=== PATIENT | male | born 1950 | race Caucasian/White ===

== ENCOUNTER → 2018-07-10 | Outpatient (CLI) | payer MEDICARE ==
[~2018-07-10] MED LIST: ATOR40TA78 PO; CARV-39 PO; CLOP75TA52 PO; RAMI10CA59 PO
[2018-07-10 14:47] LABS: BASOPHILS # (AUTO) 0.06 x10^3/uL (0-0.1); BASOPHILS % (AUTO) 1 % (0-1); EOSINOPHILS # (AUTO) 0.25 x10^3/uL (0-0.4); EOSINOPHILS % (AUTO) 5 % (1-7); LYMPHOCYTES # (AUTO) 1.07 x10^3/uL (1-3.4); LYMPHOCYTES % (AUTO) 21 % (22-44); MD NO; MEAN CORPUSCULAR HEMOGLOBIN 31.5 pg (27.5-34.5); MEAN CORPUSCULAR HGB CONC 33.6 g/dL (33.2-36.2); MEAN CORPUSCULAR VOLUME 93.8 fL (81-97); MONOCYTES # (AUTO) 0.59 x10^3/uL (0.2-0.8); MONOCYTES % (AUTO) 11 % (2-9); NEUTROPHILS # (AUTO) 3.22 x10^3/uL (1.8-6.8); NEUTROPHILS % (AUTO) 62 % (42-75); PLATELET COUNT 174 x10^3/uL (130-400); RED BLOOD COUNT 4.04 x10^6/uL (4.38-5.82); RED CELL DISTRIBUTION WIDTH 14.6 % (9.4-14.8)
[2018-07-10 14:55] LABS: INTERNATIONAL NORMALIZED RATIO 1.11 (0.93-1.1); PROTHROMBIN TIME 11.4 Seconds (9.6-11.5)
[2018-07-10 14:57] LABS: ALBUMIN 4.1 g/dL (3.4-5.0); ANION GAP 8 mmol/L (5-15); CALCIUM 8.8 mg/dL (8.5-10.1); CHLORIDE 108 mmol/L (98-107)
[2018-07-10 15:01] LABS: ALANINE AMINOTRANSFERASE 23 U/L (12-78); ALKALINE PHOSPHATASE 138 U/L (45-117); BILIRUBIN,TOTAL 0.5 mg/dL (0.2-1.0); CREATININE 1.54 mg/dL (0.7-1.3); TOTAL PROTEIN 7.7 g/dL (6.4-8.2)
[2018-07-10 15:06] LABS: MICROSCOPIC NOT IND
== END | disposition home or self-care (01) ==
LOC: STAR 13:19
PROVIDERS: ATTEND Urology
DX: Z01.818 Encounter for other preprocedural examination (principal); C67.9 Malignant neoplasm of bladder, unspecified
CPT/HCPCS: 36415; 71045; 80053; 81003; 85025; 85610; 85730; 87086; 93005

== ENCOUNTER 2018-07-24 06:05 | Inpatient (IN) | payer MEDICARE ==
[~2018-07-24] VITALS: Ht 172.7 cm; Wt 85.0 kg
[2018-07-24] MEDS ORDERED: LACTATED RINGERS 1,000 ML IV SCH (07:32)
[2018-07-24] MEDS ORDERED: ALBUMIN HUMAN 5% 500 ML ONE (09:37)
[2018-07-24] MEDS ORDERED: MIDAZOLAM 1 MG/ML, 2ML ONE (10:23)
[2018-07-24] MEDS ORDERED: FENTANYL PF 250 MCG/5ML ONE ×2 (10:23→10:26)
[2018-07-24] MEDS ORDERED: LIDOCAINE JELLY 2%, 30GM ONE (10:26)
[2018-07-24] MEDS ORDERED: SUCCINYLCHOLINE 20 MG/ML, 10ML ONE ×2 (10:27→11:40)
[2018-07-24] MEDS ORDERED: ROCURONIUM 10MG/ML,5ML ONE (10:27)
[2018-07-24] MEDS ORDERED: PROPOFOL 10 MG/ML, 20ML ONE ×2 (10:27→11:40)
[2018-07-24] MEDS ORDERED: DEXAMETHASONE 4 MG/ML, 1ML ONE (10:27)
[2018-07-24] MEDS ORDERED: ACETAMINOPHEN 500 MG TABLET PO ONE (10:30)
[2018-07-24] MEDS ORDERED: GABAPENTIN 300 MG CAPSULE PO ONE (10:30)
[2018-07-24] MEDS ORDERED: SCOPOLAMINE PATCH, 1.5MG PATCH.TD72 TD ONE (10:30)
[2018-07-24] MEDS ORDERED: GLYCOPYRROLATE 0.2MG/1ML, 5ML ONE (11:40)
[2018-07-24] MEDS ORDERED: ROCURONIUM 10 MG/ML,10ML ONE (11:40)
[2018-07-24] MEDS ORDERED: ONDANSETRON 2MG/ML, 2ML ONE (11:40)
[2018-07-24] MEDS ORDERED: ONDANSETRON 2MG/ML, 2ML IV PRN (13:00)
[2018-07-24] MEDS ORDERED: MEPERIDINE/PF 25MG/0.5ML IVPush PRN (13:00)
[2018-07-24] MEDS ORDERED: ALBUTEROL SULFATE 2.5 MG/3 ML NPPB PRN (13:00)
[2018-07-24] MEDS ORDERED: FENTANYL PF 100 MCG/2ML IV PRN (13:00)
[2018-07-24] MEDS ORDERED: LABETALOL 5MG/ML, 20ML IV PRN (13:00)
[2018-07-24] MEDS ORDERED: hydrALAzine 20 MG/ML, 1ML IV PRN (13:00)
[2018-07-24] MEDS ORDERED: HYDROmorphone 1 MG/ML, 1ML IV PRN (13:00)
[2018-07-24] MEDS ORDERED: PROMETHAZINE 25 MG/ML, 1ML IV PRN (13:00)
[2018-07-24] MEDS ORDERED: ONDANSETRON ODT 8 MG PO PRN (13:00)
[2018-07-24] MEDS ORDERED: OXYcodone 5 MG/5 ML ORAL.SOL UDC PO PRN (13:00)
[2018-07-24] MEDS ORDERED: PROMETHAZINE 12.5 MG SUPP PR PRN (13:00)
[2018-07-24] MEDS ORDERED: MORPHINE SULFATE 4 MG/ML, 1ML IVPush PRN (13:00)
[2018-07-24] MEDS ORDERED: DIAZEPAM 5 MG/ML, 2ML IVPush PRN (13:00)
[2018-07-24] MEDS ORDERED: EPHEDRINE 50 MG/ML, 1ML IVPush PRN ×2 (13:00→21:00)
[2018-07-24] MEDS ORDERED: HALOPERIDOL 5 MG/ML IV PRN (13:00)
[2018-07-24] MEDS ORDERED: MIDAZOLAM 1 MG/ML, 2ML IV PRN (13:00)
[2018-07-24] MEDS ORDERED: HYDROmorphone 5 MG, BUPIVACAINE/PF 0.5%, 30ML 62.5 ML in SODIUM CHLORIDE 0.9% 182.5 ML EPIDCONT SCH (13:30)
[2018-07-24] MEDS ORDERED: LIDOCAINE/PF 1.5%-EPI 1:200K, 30ML ONE (16:00)
[2018-07-24 19:01] LABS: BASOPHILS # (AUTO) 0.01 x10^3/uL (0-0.1); BASOPHILS % (AUTO) 0 % (0-1); EOSINOPHILS # (AUTO) 0.01 x10^3/uL (0-0.4); EOSINOPHILS % (AUTO) 0 % (1-7); LYMPHOCYTES # (AUTO) 0.32 x10^3/uL (1-3.4); LYMPHOCYTES % (AUTO) 4 % (22-44); MD NO; MEAN CORPUSCULAR HEMOGLOBIN 31.6 pg (27.5-34.5); MEAN CORPUSCULAR VOLUME 92.8 fL (81-97); MEAN PLATELET VOLUME 8.8 fL (7.4-10.4); MONOCYTES % (AUTO) 2 % (2-9); NEUTROPHILS # (AUTO) 8.48 x10^3/uL (1.8-6.8); NEUTROPHILS % (AUTO) 94 % (42-75); PLATELET COUNT 121 x10^3/uL (130-400); RED BLOOD COUNT 3.28 x10^6/uL (4.38-5.82); RED CELL DISTRIBUTION WIDTH 13.9 % (9.4-14.8)
[2018-07-24] MEDS ORDERED: NALOXONE 0.4 MG in SODIUM CHLORIDE 0.9% 1,000 ML IVPush SCH (21:00)
[2018-07-24] MEDS ORDERED: DO NOT GIVE XX SCH ×3 (21:00)
[2018-07-24] MEDS ORDERED: METOCLOPRAMIDE 5 MG/ML, 2ML IV PRN (21:00)
[2018-07-24] MEDS ORDERED: KETOROLAC 30 MG/1 ML IV PRN (21:00)
[2018-07-24] MEDS ORDERED: NALOXONE 0.4 MG/ML, 1ML IVPush PRN (21:00)
[2018-07-24] MEDS ORDERED: KETOROLAC 30 MG/1 ML IM PRN (21:00)
[2018-07-24] MEDS ORDERED: ONDANSETRON 4 MG TABLET PO PRN (21:00)
[2018-07-24] MEDS ORDERED: DO NOT GIVE MC SCH (21:00)
[2018-07-24] MEDS ORDERED: NALOXONE 0.4 MG/ML, 1ML IV PRN ×2 (21:00)
[2018-07-24] MEDS ORDERED: FENTANYL PF 100 MCG/2ML EPIDPUSH PRN (21:00)
[2018-07-24] MEDS: ATORVASTATIN 40 MG TABLET PO SCH (21:57)
[2018-07-24] MEDS: CARVEDILOL 25 MG TABLET PO SCH (21:57)
[2018-07-24] MEDS: CEFAZOLIN PMX 1GM/50ML 50 ML IVPB SCH (21:57)
[2018-07-25 00:30] VITALS: BP 126/81
[2018-07-25] MEDS: D5%-0.45% NACL 1,000 ML IV SCH ×3 (01:29→17:44)
[2018-07-25 04:25] VITALS: BP 100/65
[2018-07-25] MEDS: CEFAZOLIN PMX 1GM/50ML 50 ML IVPB SCH ×3 (05:14→22:29)
[2018-07-25 06:41] LABS: BASOPHILS # (AUTO) 0.03 x10^3/uL (0-0.1); BASOPHILS % (AUTO) 0 % (0-1); EOSINOPHILS % (AUTO) 0 % (1-7); LYMPHOCYTES # (AUTO) 0.46 x10^3/uL (1-3.4); LYMPHOCYTES % (AUTO) 4 % (22-44); MD NO; MEAN CORPUSCULAR HEMOGLOBIN 31.7 pg (27.5-34.5); MEAN CORPUSCULAR HGB CONC 34.3 g/dL (33.2-36.2); MEAN CORPUSCULAR VOLUME 92.4 fL (81-97); MEAN PLATELET VOLUME 8.4 fL (7.4-10.4); MONOCYTES % (AUTO) 8 % (2-9); NEUTROPHILS # (AUTO) 9.68 x10^3/uL (1.8-6.8); NEUTROPHILS % (AUTO) 87 % (42-75); PLATELET COUNT 127 x10^3/uL (130-400); RED CELL DISTRIBUTION WIDTH 13.9 % (9.4-14.8)
[2018-07-25 06:54] LABS: ANION GAP 7 mmol/L (5-15); CALCIUM 7.1 mg/dL (8.5-10.1); CHLORIDE 107 mmol/L (98-107)
[2018-07-25 06:55] LABS: CREATININE 1.81 mg/dL (0.7-1.3)
[2018-07-25 07:26] VITALS: BP 102/66
[2018-07-25] MEDS: RAMIPRIL 10 MG CAPSULE PO SCH (09:00)
[2018-07-25] MEDS: CARVEDILOL 25 MG TABLET PO SCH ×2 (09:00→22:27)
[2018-07-25 10:09] VITALS: BP_SYST 93; BP_SYST 95; BP_DIAS 59; BP_DIAS 63
[2018-07-25] MEDS: HYDROmorphone 5 MG, BUPIVACAINE/PF 0.5%, 30ML 62.5 ML in SODIUM CHLORIDE 0.9% 182.5 ML EPIDCONT SCH ×2 (11:20→17:42)
[2018-07-25 14:47] VITALS: BP 101/67
[2018-07-25] MEDS ORDERED: BUPIVACAINE/PF 0.5%, 30ML 62.5 ML in SODIUM CHLORIDE 0.9% 187.5 ML EPIDCONT SCH ×2 (17:53→17:54)
[2018-07-25 20:54] VITALS: BP 115/73
[2018-07-25] MEDS: ATORVASTATIN 40 MG TABLET PO SCH (22:27)
[2018-07-26] MEDS: D5%-0.45% NACL 1,000 ML IV SCH ×4 (00:23→20:22)
[2018-07-26 01:00] VITALS: BP 100/70
[2018-07-26 02:52] VITALS: BP 97/41
[2018-07-26 05:37] VITALS: BP 100/65
[2018-07-26] MEDS: CEFAZOLIN PMX 1GM/50ML 50 ML IVPB SCH ×3 (06:10→23:03)
[2018-07-26 06:26] LABS: ALANINE AMINOTRANSFERASE 14 U/L (12-78); ANION GAP 5 mmol/L (5-15); CALCIUM 7.8 mg/dL (8.5-10.1); CHLORIDE 109 mmol/L (98-107)
[2018-07-26 06:29] LABS: ALKALINE PHOSPHATASE 75 U/L (45-117); BILIRUBIN,TOTAL 0.3 mg/dL (0.2-1.0); CREATININE 1.55 mg/dL (0.7-1.3); TOTAL PROTEIN 5.8 g/dL (6.4-8.2)
[2018-07-26 08:50] VITALS: BP 119/79
[2018-07-26] MEDS: RAMIPRIL 10 MG CAPSULE PO SCH (09:21)
[2018-07-26] MEDS: CARVEDILOL 25 MG TABLET PO SCH ×2 (09:22→20:23)
[2018-07-26] MEDS: HEPARIN 5,000 UNITS/ML, 1ML SQ SCH (12:59)
[2018-07-26] MEDS ORDERED: morphine SULFATE ORAL.CONC 20 MG/ML PO PRN (15:00)
[2018-07-26 15:38] VITALS: BP 105/70
[2018-07-26 20:04] VITALS: BP 113/76
[2018-07-26] MEDS: ATORVASTATIN 40 MG TABLET PO SCH (20:22)
[2018-07-26] MEDS: ACETAMINOPHEN 325 MG TABLET PO PRN (20:29)
[2018-07-27] MEDS: HEPARIN 5,000 UNITS/ML, 1ML SQ SCH ×2 (01:50→14:04)
[2018-07-27 02:09] VITALS: BP 99/57
[2018-07-27] MEDS: D5%-0.45% NACL 1,000 ML IV SCH ×2 (03:56→23:28)
[2018-07-27] MEDS: ONDANSETRON ODT 4 MG PO PRN (03:56)
[2018-07-27] MEDS: ACETAMINOPHEN 325 MG TABLET PO PRN (04:10)
[2018-07-27] MEDS: CEFAZOLIN PMX 1GM/50ML 50 ML IVPB SCH ×3 (05:49→22:02)
[2018-07-27 08:11] VITALS: BP 111/75
[2018-07-27] MEDS: CARVEDILOL 25 MG TABLET PO SCH ×2 (08:48→22:02)
[2018-07-27] MEDS: RAMIPRIL 10 MG CAPSULE PO SCH (08:49)
[2018-07-27] MEDS: OXYcodone/APAP 5/325MG TABLET PO PRN ×3 (14:17→22:02)
[2018-07-27 14:55] VITALS: BP 116/81
[2018-07-27 19:50] VITALS: BP 117/75
[2018-07-27] MEDS: ATORVASTATIN 40 MG TABLET PO SCH (22:02)
[2018-07-28] MEDS: HEPARIN 5,000 UNITS/ML, 1ML SQ SCH ×2 (01:51→12:57)
[2018-07-28 02:00] VITALS: BP 124/79
[2018-07-28] MEDS: OXYcodone/APAP 5/325MG TABLET PO PRN ×5 (06:24→22:53)
[2018-07-28] MEDS: CEFAZOLIN PMX 1GM/50ML 50 ML IVPB SCH ×3 (06:25→22:53)
[2018-07-28 06:27] LABS: BASOPHILS # (AUTO) 0.05 x10^3/uL (0-0.1); BASOPHILS % (AUTO) 1 % (0-1); EOSINOPHILS # (AUTO) 0.38 x10^3/uL (0-0.4); EOSINOPHILS % (AUTO) 5 % (1-7); LYMPHOCYTES # (AUTO) 0.95 x10^3/uL (1-3.4); LYMPHOCYTES % (AUTO) 13 % (22-44); MD NO; MEAN CORPUSCULAR HEMOGLOBIN 30.6 pg (27.5-34.5); MEAN CORPUSCULAR HGB CONC 32.9 g/dL (33.2-36.2); MEAN CORPUSCULAR VOLUME 92.9 fL (81-97); MEAN PLATELET VOLUME 8.4 fL (7.4-10.4); MONOCYTES # (AUTO) 0.43 x10^3/uL (0.2-0.8); MONOCYTES % (AUTO) 6 % (2-9); NEUTROPHILS # (AUTO) 5.25 x10^3/uL (1.8-6.8); NEUTROPHILS % (AUTO) 75 % (42-75); PLATELET COUNT 150 x10^3/uL (130-400); RED BLOOD COUNT 3.29 x10^6/uL (4.38-5.82); RED CELL DISTRIBUTION WIDTH 13.5 % (9.4-14.8)
[2018-07-28] MEDS: D5%-0.45% NACL 1,000 ML IV SCH ×2 (06:32→16:13)
[2018-07-28 06:38] LABS: ANION GAP 6 mmol/L (5-15); CALCIUM 7.4 mg/dL (8.5-10.1); CHLORIDE 110 mmol/L (98-107); CREATININE 1.49 mg/dL (0.7-1.3)
[2018-07-28 07:20] VITALS: BP 111/73
[2018-07-28] MEDS: DOCUSATE 100 MG CAPSULE PO PRN (08:54)
[2018-07-28] MEDS: RAMIPRIL 10 MG CAPSULE PO SCH (08:55)
[2018-07-28] MEDS: CARVEDILOL 25 MG TABLET PO SCH ×2 (08:55→21:43)
[2018-07-28] MEDS: ONDANSETRON ODT 4 MG PO PRN ×2 (11:05→17:06)
[2018-07-28 14:00] VITALS: BP 104/68
[2018-07-28 18:45] VITALS: BP 109/70
[2018-07-28] MEDS: ATORVASTATIN 40 MG TABLET PO SCH (21:42)
[2018-07-29] MEDS: HEPARIN 5,000 UNITS/ML, 1ML SQ SCH ×2 (00:29→13:17)
[2018-07-29] MEDS: D5%-0.45% NACL 1,000 ML IV SCH ×3 (00:30→17:33)
[2018-07-29] MEDS: ONDANSETRON ODT 4 MG PO PRN ×2 (00:39→06:28)
[2018-07-29 01:24] VITALS: BP 141/86
[2018-07-29] MEDS: CEFAZOLIN PMX 1GM/50ML 50 ML IVPB SCH ×3 (06:28→22:09)
[2018-07-29 07:23] VITALS: BP 112/74
[2018-07-29] MEDS: CARVEDILOL 25 MG TABLET PO SCH ×2 (09:11→21:49)
[2018-07-29] MEDS: DOCUSATE 100 MG CAPSULE PO PRN (09:11)
[2018-07-29] MEDS: RAMIPRIL 10 MG CAPSULE PO SCH (09:11)
[2018-07-29] MEDS ORDERED: GUAIFENESIN ER 600 MG TABLET PO SCH (11:00)
[2018-07-29 12:52] VITALS: BP 100/88
[2018-07-29] MEDS: OXYcodone/APAP 5/325MG TABLET PO PRN ×3 (14:00→22:09)
[2018-07-29 20:18] VITALS: BP 104/67
[2018-07-29] MEDS: ATORVASTATIN 40 MG TABLET PO SCH (21:48)
[2018-07-30] MEDS: HEPARIN 5,000 UNITS/ML, 1ML SQ SCH ×2 (00:33→13:03)
[2018-07-30 00:45] VITALS: BP 96/62
[2018-07-30] MEDS: D5%-0.45% NACL 1,000 ML IV SCH ×2 (00:53→10:34)
[2018-07-30] MEDS: CEFAZOLIN PMX 1GM/50ML 50 ML IVPB SCH ×2 (06:30→14:30)
[2018-07-30 07:51] VITALS: BP 122/76
[2018-07-30] MEDS: CARVEDILOL 25 MG TABLET PO SCH (08:44)
[2018-07-30] MEDS: RAMIPRIL 10 MG CAPSULE PO SCH (08:44)
[2018-07-30] MEDS: OXYcodone/APAP 5/325MG TABLET PO PRN ×3 (10:03→18:23)
[2018-07-30 12:21] VITALS: BP 101/64
[2018-07-30] MEDS ORDERED: ENOXAPARIN 30 MG/0.3 ML ONE (13:00)
[2018-07-30] MEDS ORDERED: DOCU-131 PO (16:42)
[2018-07-30] MEDS ORDERED: ENOX40SY4 SQ (16:42)
[2018-07-30] MEDS ORDERED: OXYC-302 PO (16:42)
== END 2018-07-30 18:33 | disposition home or self-care (01) | DRG 653 ==
LOC: ORIP 06:05 → 4NOR 20:15
PROVIDERS: ADMIT Urology; ATTEND Urology
PROC: 0TTB0ZZ Resection of Bladder, Open Approach (ICD-10-PCS; principal; 2018-07-30)
PROC: 0VT00ZZ Resection of Prostate, Open Approach (ICD-10-PCS; 2018-07-30)
PROC: 07BC0ZZ Excision of Pelvis Lymphatic, Open Approach (ICD-10-PCS; 2018-07-30)
PROC: 0TRB07Z Replacement of Bladder with Autologous Tissue Substitute, Open Approach (ICD-10-PCS; 2018-07-30)
PROC: 0T180ZC Bypass Bilateral Ureters to Ileocutaneous, Open Approach (ICD-10-PCS; 2018-07-30)
PROC: 03HY32Z Insertion of Monitoring Device into Upper Artery, Percutaneous Approach (ICD-10-PCS; 2018-07-30)
PROC: 4A133B1 Monitoring of Arterial Pressure, Peripheral, Percutaneous Approach (ICD-10-PCS; 2018-07-30)
PROC: 4A133J1 Monitoring of Arterial Pulse, Peripheral, Percutaneous Approach (ICD-10-PCS; 2018-07-30)
DX: C67.9 Malignant neoplasm of bladder, unspecified (principal); N17.0 Acute kidney failure with tubular necrosis; D62 Acute posthemorrhagic anemia; I10 Essential (primary) hypertension; E78.00 Pure hypercholesterolemia, unspecified; E78.5 Hyperlipidemia, unspecified; R31.0 Gross hematuria; I25.10 Atherosclerotic heart disease of native coronary artery without angina pectoris; I25.2 Old myocardial infarction; Z90.49 Acquired absence of other specified parts of digestive tract; Z92.21 Personal history of antineoplastic chemotherapy; Z95.5 Presence of coronary angioplasty implant and graft; Z87.891 Personal history of nicotine dependence; Z86.73 Personal history of transient ischemic attack (TIA), and cerebral infarction without residual deficits
CPT/HCPCS: 36415; 80048; 80053; 82330; 82803; 82947; 84132; 84295; 85014; 85025; 86850; 86900; 86923; 88305; 88309; 88331; C1729; G0378; J0690; J1100; J1170; J1644; J2250; J2405; J2704; J3010; J3490; P9045; Q0162; C1760; C2617; J0330; J7050

== ENCOUNTER 2018-08-11 13:58 | Emergency (ER) | payer MEDICARE ==
[~2018-08-11] VITALS: Ht 172.7 cm; Wt 73.4 kg
[~2018-08-11 13:58] MED LIST changes: +DOCU-131 PO; +ENOX40SY4 SQ; +OXYC-302 PO
[2018-08-11] MEDS ORDERED: SODIUM CHLORIDE FLUSH 10ML SYR IVF ONE (14:30)
[2018-08-11] MEDS ORDERED: SODIUM CHLORIDE 0.9% 1,000ML IVBOLUS ONE (14:30)
[2018-08-11 15:04] LABS: BASOPHILS # (AUTO) 0.06 x10^3/uL (0-0.1); BASOPHILS % (AUTO) 1 % (0-1); EOSINOPHILS # (AUTO) 0.27 x10^3/uL (0-0.4); EOSINOPHILS % (AUTO) 4 % (1-7); LYMPHOCYTES # (AUTO) 0.97 x10^3/uL (1-3.4); LYMPHOCYTES % (AUTO) 14 % (22-44); MD NO; MEAN CORPUSCULAR HEMOGLOBIN 30.4 pg (27.5-34.5); MEAN CORPUSCULAR HGB CONC 32.8 g/dL (33.2-36.2); MEAN CORPUSCULAR VOLUME 92.6 fL (81-97); MEAN PLATELET VOLUME 8.9 fL (7.4-10.4); MONOCYTES # (AUTO) 0.53 x10^3/uL (0.2-0.8); MONOCYTES % (AUTO) 7 % (2-9); NEUTROPHILS # (AUTO) 5.31 x10^3/uL (1.8-6.8); NEUTROPHILS % (AUTO) 75 % (42-75); PLATELET COUNT 273 x10^3/uL (130-400); RED BLOOD COUNT 4.11 x10^6/uL (4.38-5.82); RED CELL DISTRIBUTION WIDTH 13.8 % (9.4-14.8)
[2018-08-11 15:10] LABS: ALANINE AMINOTRANSFERASE 20 U/L (12-78); ALBUMIN 3.6 g/dL (3.4-5.0); ANION GAP 10 mmol/L (5-15); CALCIUM 8.3 mg/dL (8.5-10.1); CHLORIDE 114 mmol/L (98-107); CREATININE 1.96 mg/dL (0.7-1.3)
[2018-08-11 15:13] LABS: ALKALINE PHOSPHATASE 114 U/L (45-117); BILIRUBIN,TOTAL 0.2 mg/dL (0.2-1.0); TOTAL PROTEIN 7.9 g/dL (6.4-8.2)
[2018-08-11 15:45] LABS: CULTURE INDICATED? YES; MICROSCOPIC AUTO
[2018-08-11] MEDS ORDERED: CEFDINIR 300 MG CAPSULE PO STA (16:10)
[2018-08-11] MEDS ORDERED: CEFDINIR 300 MG CAPSULE ONE (16:20)
[2018-08-11 16:23] VITALS: BP 129/75
== END 2018-08-11 17:06 | disposition home or self-care (01) ==
LOC: ED 16:13
DX: N30.00 Acute cystitis without hematuria (principal); C67.9 Malignant neoplasm of bladder, unspecified; I25.2 Old myocardial infarction; Z90.49 Acquired absence of other specified parts of digestive tract; Z87.891 Personal history of nicotine dependence; Z86.73 Personal history of transient ischemic attack (TIA), and cerebral infarction without residual deficits
CPT/HCPCS: 36415; 80053; 81001; 83605; 85025; 87077; 87086; 87186; 99283; J7030